=== PATIENT | female | born 1980 | race Caucasian/White ===

== ENCOUNTER 2020-07-23 18:59 | Emergency (ER) | payer OTHER ==
[~2020-07-23] VITALS: Ht 167.6 cm; Wt 71.4 kg
--- NOTE | 2020-07-23 20:01 | PHYS DOC ---
Past History Past Medical History: No Pertinent History Past Surgical History: Hysterectomy Smoking: Non-smoker Alcohol Use: None Drug Use: None General Adult EDM: Chief Complaint: ABDOMINAL PAIN HPI: HPI: Patient is a 40-year-old female with a history of partial hysterectomy who presents with left lower quadrant abdominal pain that started this morning when she woke up. Patient states that it started out as a pressure-like feeling and progressively worsened throughout the day. Patient states that the pain is a dull constant ache with intermittent sharp pain that does not radiate. Patient rates her pain at a 7 out of 10 at this time. Patient states that she also has associated lower back pain and denies any injury to the area recently. Patient denies any fevers chills, nausea, or vomiting. Patient states that the pain worsens with positional changes. She has not tried taking any medications for the pain. Patient denies any changes in her bowel movement. Denies dysuria, hematuria, or increased frequency of urination. Review of Systems: Review of Systems: Constitutional: Denies fever or chills Eyes: Denies redness or eye pain HENT: Denies nasal congestion or sore throat Respiratory: Denies cough or shortness of breath Cardiovascular: Denies chest pain or palpitations GI: Reports left lower quadrant abdominal pain, denies nausea, or vomiting : Denies dysuria or hematuria Musculoskeletal: Reports mild lower back pain. denies joint pain Integument: Denies rash or skin lesions Neurologic: Denies headache, focal weakness or sensory changes Complete systems were reviewed and found to be within normal limits, except as documented in this note. Current Medications: Current Meds: Current Medications Medications (Trade) Dose Ordered Sig/[facility] Start Time Stop Time Status Last Admin Dose Admin Ketorolac Tromethamine (Toradol 15mg Vial) 15 mg 1X ONCE 07/23/20 20:00 07/23/20 20:01 UNV Sodium Chloride 1,000 ml @ 1,000 mls/hr 1X ONCE 07/23/20 20:00 07/23/20 20:59 UNV Allergies: Allergies: Allergies Coded Allergies Type Severity Reaction Last Updated Verified No Known Drug Allergies 07/23/20 No Physical Exam: PE: Constitutional: Well developed, well nourished, no acute distress, non-toxic appearance HENT: Normocephalic, atraumatic Eyes: PERRL, EOMI, conjunctiva normal, no discharge Neck: Normal range of motion, no tenderness, supple Lungs & Thorax: No respiratory distress, equal chest rise and fall Abdomen: Soft, no distention or guarding. Tenderness to palpation left lower quadrant. Skin: Warm, dry, no erythema, no rash Back: No tenderness to palpation, no CVA tenderness Extremities: No tenderness, ROM intact, no edema Neurologic: Alert and oriented X 3, normal motor function, normal sensory function, no focal deficits noted Psychologic: Affect normal, judgment normal Current Patient Data: Vital Signs: Vital Signs Date Time Temp Pulse Resp B/P (MAP) Pulse Ox O2 Delivery O2 Flow Rate FiO2 07/23/20 19:11 98.1 96 14 143/105 (118) 99 Room Air EKG: EKG: @19:30 Normal sinus rhythm at [address] elevations and nonspecific T wave inversions in lead III. QRS 84ms. QT 358 ms. QTc 465 ms. Course & Med Decision Making: Course & Med Decision Making Pertinent Labs and Imaging studies reviewed. (See chart for details) Patient is a 40-year-old female with a history of partial hysterectomy who presents with left lower quadrant abdominal pain. Pain medication was given for symptom control. IV fluids were provided and labs were drawn. CT abdomen and pelvis showed Dragon Disclaimer: Dragon Disclaimer: This electronic medical record was generated, in whole or in part, using a voice recognition dictation system. Departure Departure: Impression: Primary Impression: Acute diverticulitis Disposition: HOME/RESIDENCE PRIOR TO ADM Condition: STABLE Referrals: CHATA GALAVIZ (PCP) CRISTIANA BLANCHARD MD Patient Instructions: Diverticulitis, [id number] Scripts Metronidazole (FLAGYL) 500 Mg Tablet 1 TAB PO TID for Diverticulitis, #21 TAB Prov: AWAIS ROSS DO 07/23/20 Ciprofloxacin Hcl (CIPRO) 500 Mg Tablet 1 TAB PO BID for Diverticulitis, #14 TAB Prov: AWAIS ROSS DO 07/23/20 Tramadol Hcl (TRAMADOL HCL) 50 Mg Tablet 50 MG PO PRN Q6HRS PRN for PAIN, #14 TAB Take each tablet with one (1) regular strength Tylenol 325mg Prov: AWAIS ROSS DO 07/23/20 Justification of Admission: Justification of Admission: Justification of Admission Dx: N/A AWAIS ROSS 16, 2020 20:01
[2020-07-23] MEDS: IV NORMAL SALINE 1,000ML 1,000 ML IV ONE (20:10)
[2020-07-23] MEDS: KETOROLAC 15 MG/ML VIAL. IVP ONE (20:10)
[2020-07-23 20:22] LABS: BASO % 0 % (0-3); EOS % 0 % (0-3); HEMATOCRIT 39.8 % (36.0-47.0); HEMOGLOBIN 13.9 g/dL (12.0-15.5); LYMPH # 1.2 x10^3/uL (1.0-4.8); LYMPH % 19 % (24-48); MEAN CORPUSCULAR HEMOGLOBIN 33 pg (25-35); MEAN CORPUSCULAR HGB CONC 35 g/dL (31-37); MEAN CORPUSCULAR VOLUME 95 fL (79-100); MONO # 0.5 x10^3/uL (0.0-1.1); MONO % 9 % (0-9); NEUT # 4.4 x10^3uL (1.8-7.7); NEUT % 72 % (31-73); PLATELET COUNT 205 x10^3/uL (140-400); RED CELL DISTRIBUTION WIDTH 12.4 % (11.5-14.5); WHITE BLOOD COUNT 6.2 x10^3/uL (4.0-11.0)
[2020-07-23 20:25] LABS: CLARITY,URINE CLEAR; COLOR,URINE STRAW
[2020-07-23 20:26] LABS: BACTERIA,URINE 0 /HPF (0-FEW); BILIRUBIN,URINE NEG (NEG); GLUCOSE,URINE NEG (NEG); NITRITE,URINE NEG (NEG); RBC,URINE 0 /HPF (0-2); UROBILINOGEN,URINE 0.2 mg/dL (0.2 mg/dL); WBC,URINE 0 /HPF (0-4)
[2020-07-23 20:29] LABS: CALCIUM 9.6 mg/dL (8.5-10.1); CREATININE 0.7 mg/dL (0.6-1.0); GFR 93.6
[2020-07-23 20:35] LABS: ALBUMIN 4.5 g/dL (3.4-5.0); TOTAL PROTEIN 8.8 g/dL (6.4-8.2)
[2020-07-23] MEDS: IOHEXOL 300 MG/ML 75 ML VIAL. IV ONE (20:53)
[2020-07-23 21:00] VITALS: BP 121/62
--- NOTE | 2020-07-23 22:15 | RAD ---
CT ABD PELV W/ IV CONTRST ONLY History: Reason: LLQ pain, Technique: After the administration of intravenous contrast, CT imaging was performed of the abdomen and pelvis. Multiplanar images are reviewed. Exposure: One or more of the following individualized dose reduction techniques were utilized for this examination: 1. Automated exposure control 2. Adjustment of the mA and/or kV according to patient size 3. Use of iterative reconstruction technique. Comparison: None Findings: Lower chest: No consolidation or pleural effusion. Abdomen and pelvis: The liver, spleen, adrenal glands, pancreas and gallbladder are unremarkable. No biliary ductal dilatation. Patent portal and hepatic veins. Normal appearance the kidneys. No hydronephrosis. Mild colonic diverticulosis. Severe sigmoid colonic wall thickening with adjacent inflammatory changes surrounding the diverticulum (series 2 image 64). No abscess. No perforation. Small pelvic free fluid. Normal appendix. No evidence of bowel obstruction. No pathologic lymphadenopathy. Bones: No pathologic osseous lesions. Impression: 1. Acute sigmoid diverticulitis. No perforation or abscess. 2. Small pelvic free fluid. Electronically signed by: Arvind Delgado DO (07/23/2020 10:12 PM) [facility]
[2020-07-23] MEDS ORDERED: METR500T PO (22:33)
[2020-07-23] MEDS ORDERED: TRAM50TA PO (22:33)
[2020-07-23] MEDS ORDERED: CIPR500T94 PO (22:33)
[2020-07-23] MEDS ORDERED: ACETAMINOPHEN 325 MG TABLET PO ONE (22:34)
[2020-07-23] MEDS ORDERED: traMADol 50 MG TABLET ONE (22:34)
[2020-07-23] MEDS ORDERED: metroNIDAZOLE 500 MG TABLET ONE (22:34)
[2020-07-23] MEDS ORDERED: CIPROFLOXACIN HCL 500 MG TABLET ONE (22:34)
[2020-07-23] MEDS: CIPROFLOXACIN HCL 500 MG TABLET PO ONE (22:40)
[2020-07-23] MEDS: traMADol 50 MG TABLET PO ONE (22:40)
[2020-07-23] MEDS: ACETAMINOPHEN 325 MG TABLET PO ONE (22:40)
[2020-07-23] MEDS: metroNIDAZOLE 500 MG TABLET PO ONE (22:41)
--- NOTE | 2020-07-24 07:37 | EKG ---
[address] [address] Test Date: 2020-07-23 Test Time: 19:30:53 Pat Name: GRUPO MEJIA Department: Room: Gender: F [employer] Manager: CHRISTIANO : 1980 Requested By: AWAIS ROSS Order Number: [id number] Reading MD: Measurements Intervals Reynolds Rate: 99 P: 63 WI: 144 QRS: -33 QRSD: 84 T: 7 QT: 358 QTc: 465 Interpretive Statements SINUS RHYTHM ABNORMAL LEFT AXIS DEVIATION LEFT ANTERIOR FASCICULAR BLOCK ABNORMAL ECG RI6.02 No previous ECG available for comparison
== END 2020-07-23 22:45 | disposition home or self-care (01) ==
LOC: ER 18:59
DX: K57.32 Diverticulitis of large intestine without perforation or abscess without bleeding (principal); Z90.710 Acquired absence of both cervix and uterus
CPT/HCPCS: 36415; 74177; 80053; 81001; 81025; 83690; 83735; 85025; 93005; 96361; 96374; 99285; J1885; J7030; Q9967